=== PATIENT | female | born 1990 | race Two or more races ===

== ENCOUNTER 2017-04-11 10:20 | Emergency (ER) | payer MEDICAID ==
[~2017-04-11] VITALS: Ht 154.9 cm; Wt 94.3 kg
[2017-04-11 12:11] LABS: Basophils # (auto) 0 uL; Basophils % (auto) 0.2 % (0.0-2.0); CONDITION Y; Eosinophils # (auto) 0 uL; Eosinophils % (auto) 0.3 % (0.0-7.0); Hematocrit 41.2 % (36.0-46.0); Lymphocytes # (auto) 0.8 uL; Mean Corpuscular Hemoglobin 27.4 pg (28.0-32.0); Mean Corpuscular Hgb Conc. 33.9 g/dL (32.0-36.0); Mean Corpuscular Volume 80.8 fL (80.0-100.0); Mean Platelet Volume 9.5 fL (7.4-10.4); Monocytes # (auto) 1.1 uL; Monocytes % (auto) 7.9 % (0.0-12.0); Neutrophils # (auto) 11.8 uL; Neutrophils % (auto) 85.6 % (37.0-80.0); Platelet Count (auto) 302 10^3/uL (140-450); Red Cell Distribution Width 13.5 % (11.6-16.0); White Blood Cell 13.8 10^3/uL (4.4-10.8)
[2017-04-11 12:28] LABS: Albumin 3.9 g/dL (3.4-5.0); Bilirubin, Total 0.7 mg/dL (0.2-1.0); Calcium 8.6 mg/dL (8.5-10.1); Potassium 3.5 mmol/L (3.5-5.1); Total Protein 8.1 g/dL (6.4-8.2)
[2017-04-11 13:10] LABS: Urine Bilirubin Negative (Negative); Urine Blood Negative /uL (Negative); Urine Color Yellow (Yellow); Urine Glucose Normal (Normal); Urine Ketone Negative (Negative); Urine Mucus FEW (None Seen); Urine Nitrite Negative (Negative); Urine RBC 1 /hpf (0 - 4); Urine Squamous Epithelial Cell MOD /hpf (<5); Urine Urobilinogen Normal (Negative); Urine pH 6.5 (5.0-8.0)
[2017-04-11] MEDS ORDERED: SODIUM CHLORIDE 0.9% 1,000 ML IV ONE (13:23)
[2017-04-11] MEDS ORDERED: LORazepam 2MG/ML-1ML VIAL IV ONE (13:30)
[2017-04-11] MEDS ORDERED: KETOROLAC TROMETH 30 MG/ML 1ML VIAL IV ONE (13:30)
[2017-04-11 14:02] VITALS: BP 116/68
== END 2017-04-11 15:05 | disposition home or self-care (01) ==
LOC: ER 10:20
DX: F41.9 Anxiety disorder, unspecified (principal); M79.7 Fibromyalgia; R51 Headache; R07.9 Chest pain, unspecified; R07.0 Pain in throat; M54.2 Cervicalgia
CPT/HCPCS: 36415; 80053; 81001; 85025; 93005; 94761; 96361; 96374; 96375; 99285; J1885; J2060; J7030

== ENCOUNTER 2024-01-14 14:20 | Emergency (ER) | payer MEDICAID ==
[~2024-01-14] VITALS: Ht 152.4 cm; Wt 104.0 kg
[2024-01-14] MEDS: HYOSCYAMINE SULF 0.125 MG ODT TAB PO ONE (16:30)
[2024-01-14 17:00] VITALS: PULSE 90; RESP 16; O2SAT 97
[2024-01-14] MEDS: ACETAMINOPHEN 500 MG TAB PO ONE (17:11)
[2024-01-14] MEDS: ONDANSETRON HCL 4 MG/2 ML VIAL IM ONE (17:12)
[2024-01-14 17:15] LABS: Urine Bacteria FEW /hpf (None Seen); Urine Blood TRACE /uL (Negative); Urine Clarity Turbid (Clear); Urine Color Yellow (Yellow); Urine Mucus FEW (None Seen); Urine Protein, UAD 1+ (Negative); Urine Specific Gravity 1.028 (1.001-1.035); Urine Urobilinogen Normal (Negative); Urine WBC 7 /hpf (0 - 5)
[2024-01-14] MEDS ORDERED: ACET500T58 PO (17:42)
[2024-01-14] MEDS ORDERED: IBUP1TAB5 PO (17:42)
[2024-01-14] MEDS ORDERED: ZOFR4T PO (17:42)
[2024-01-14] MEDS ORDERED: DICY20TA2 PO (17:42)
[2024-01-14] MEDS: DICYCLOMINE HCL (10MG/ML) 2 ML AMPULE IM ONE (17:50)
[2024-01-14 17:56] VITALS: BP 104/52; PULSE 78; RESP 16; TEMP 97.5; O2SAT 100
== END 2024-01-14 18:21 | disposition home or self-care (01) ==
LOC: ER 14:20
DX: B34.9 Viral infection, unspecified (principal); J06.9 Acute upper respiratory infection, unspecified; Z32.02 Encounter for pregnancy test, result negative
CPT/HCPCS: 81001; 81025; 96372; 99284; J0500; J2405